=== PATIENT | male | born 1995 | race Caucasian/White ===

== ENCOUNTER 2018-01-06 07:47 | Emergency (ER) | payer OTHER ==
[~2018-01-06] VITALS: Ht 180.3 cm; Wt 87.1 kg
[2018-01-06 07:50] VITALS: BP 137/74
[2018-01-06 08:31] VITALS: BP 132/71
== END 2018-01-06 08:31 | disposition home or self-care (01) ==
LOC: MED 07:47
DX: M54.5 Low back pain (principal); M79.604 Pain in right leg; R03.0 Elevated blood-pressure reading, without diagnosis of hypertension; Z88.0 Allergy status to penicillin
CPT/HCPCS: 99283